=== PATIENT | male | born 2000 | race Two or more races ===

== ENCOUNTER 2023-11-28 23:08 | Emergency (ER) | payer OTHER, SELFPAY ==
--- NOTE | ~2023-11-28 | XR_ITS ---
EXAMINATION: XR ANKLE, RIGHT CLINICAL INFORMATION: Fall. Pain. COMPARISON: None available. TECHNIQUE: AP, lateral, and mortise views of the right ankle. FINDINGS: The bone mineralization is normal. The joint spaces are maintained. There is lateral soft tissue swelling extending to the lateral midfoot. There is also medial soft tissue swelling extending to the distal tib-fib soft tissues with a small amount of medial apparent subcutaneous emphysema. XR/XR ankle RT min 3V IMPRESSION: 1. Soft tissue swelling. 2. No evidence of acute fracture. 3. Small amount of medial subcutaneous emphysema which could be secondary to an open injury.
--- NOTE | ~2023-11-28 | XR_ITS ---
EXAMINATION: XR TIBIA AND FIBULA, RIGHT CLINICAL INFORMATION: Fall. Pain. COMPARISON: None available. TECHNIQUE: AP and lateral views of the right tibia and fibula were obtained. FINDINGS: The bones and soft tissues are normal. No fracture. No osseous lesions. XR/XR tibia fibula RT 2V IMPRESSION: No acute osseous abnormality.
--- NOTE | 2023-11-28 23:23 | ED_ITS ---
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 He has laceration to inner leg and swelling to lateral malleolus with abrasion complaint: ankle injury Onset (ago): minute(s) (just [employer]OR) Injury: Right: ankle Type of Injury: blunt Place: work Severity: moderate Relieving factors: immobilization Exacerbating factors: palpation Context: direct blow Associated symptoms: swelling and other (laceration) Other symptoms: none Treatments prior to arrival: bandage Related Data Previous Rx's ?Medication ?Instructions ?Recorded amoxicillin 875 mg-potassium 1 tab PO BID #14 tabs 11/29/23 clavulanate 125 mg tablet cyclobenzaprine 10 mg tablet 10 mg PO TID PRN muscle spasm #20 11/29/23 tabs ibuprofen 600 mg tablet 600 mg PO Q6H PRN pain #30 tabs 11/29/23 Allergies Allergy/AdvReac Type Severity Reaction Status Date / Time No Known Allergies Allergy Verified 11/28/23 23:27 Review of Systems 2 Review of Systems: Constitutional : No Fever, No Chills ENT/Mouth : No Ear Pain, No Hoarseness, No sore throat Eyes: No Eye Pain, No Swelling, No Redness, No Foreign Body Cardiovascular : No Chest Pain, No SOB Respiratory : No Cough, No Dyspnea Gastrointestinal : No Nausea, No Vomiting, No Diarrhea, No abdominal Pain Genitourinary : No Dysuria, No Hematuria Musculoskeletal : positive joint pain, No Myalgias, pos Joint Swelling Skin : No Skin lacerations, No rash Neuro : No Weakness, No Numbness, No Loss of Consciousness, No Dizziness, No Headache Psych : No Anxiety/Panic, No Depression Heme/Lymph: no easy bruising, no Lymphadenopathy Endocrine : No Polyuria, No Polydipsia All other systems reviewed and are negative PMFSH Past Medical History Attestation statement: The following information was validated with the patient. Source: old records reviewed Medical History (Updated 11/29/23 @ 01:48 by Jamaica Mitchell DO) No pertinent past medical history Social History Social History (Updated 11/28/23 @ 23:39 by Jamaica Mitchell DO) Patient Tobacco Use Status: Never used Tobacco Advance Directives: No Advance Directives Information Provided: No Do you have a plan to hurt others: No Plan Physical Exam 2 Vital Signs: Vital Signs: Last Vital Signs Temp 98.3 F 11/28/23 23:31 Pulse 64 11/28/23 23:31 Resp 16 11/28/23 23:31 BP 132/74 11/28/23 23:31 Pulse Ox 99 11/28/23 23:31 O2 Del Method Room Air 11/28/23 23:31 BMI result Body Mass Index 28.2 Appearance: Alert. Oriented X3. No acute distress. Eyes: Pupils equal, round and reactive to light. ENT: Pharynx normal. Neck: Normal inspection. Neck supple. CVS: Normal heart rate and rhythm. Pulses normal. Respiratory: No respiratory distress. Breath sounds normal. Abdomen: Soft and nontender. Skin: Skin warm and dry. Normal skin color. Normal skin turgor. Extremities: R ankle swollen at lateral malleolus - distal NV intact has superficial abrasion noted on left mid calf opposite the area of concern for fracture is a 1cm laceration superficial noted Neuro: Oriented X 3. No motor deficit. No sensory deficit. Medications Administered Discontinued Medications Generic Name Dose Route Start Last Admin Trade Name Freq PRN Reason Stop Dose Admin Diphtheria/Tetanus/Acell Pertussis 0.5 ml 11/28/23 23:29 11/28/23 23:45 Diphth,Pertus(Acell),Tet Adult 0.5 Ml Syringe IM 11/28/23 23:30 0.5 ml .ONCE ONE Administration Cefazolin Sodium 1 gm/ Sodium 50 mls @ 100 mls/hr 11/28/23 23:29 11/29/23 00:27 Chloride IV 11/28/23 23:58 Infused ONCE ONE Infusion Lidocaine HCl 5 ml 11/28/23 23:29 11/28/23 23:45 Lidocaine Hcl 1 % Mpf 5 Ml Vial SUBCUT 11/28/23 23:30 5 ml ONCE ONE Administration Medical Decision Making Medical Decision Making MDM Narrative: 23 yo male with R ankle and leg injury after forklift accident at work at this time concern for ankle fracture and also has laceration on upper medial leg opposite the site of concern for fracture so clinically not consistent with open fracture at this time labs, IV morphine, xray, tdap, empiric ancef pending xrays, wound repair. Differential Diagnosis Differential Diagnoses: The differential diagnosis associated with the presentation includes laceration, fracture, contusion Lab Data [facility] Lab Attestation statement: I reviewed the patient's lab results. 11/28/23 23:43 11/28/23 23:43 Labs: Lab Results 11/28/23 Range/Units 23:43 WBC 10.1 (4.8-10.8) X10*3/uL RBC 5.27 (4.60-5.80) X10*6/uL Hgb 16.8 (14.0-18.0) g/dl Hct 46.1 (42.0-52.0) % MCV 87.5 (80.0-98.0) fL MCH 31.9 (27.0-33.0) pg MCHC 36.4 H (31.0-36.0) g/dl RDW 12.5 (11.0-16.0) % Plt Count 334 (160-400) X10*3/uL MPV 9.0 L (9.4-12.4) fL Immature Gran % (Auto) 0.2 (0.0-0.4) % Neut % (Auto) 73.5 H (45-73) % Lymph % (Auto) 17.7 L (20-40) % [place] % (Auto) 6.6 (2-11) % Eos % (Auto) 1.5 (0-4) % Baso % (Auto) 0.5 (0-2) % Lymph # (Auto) 1.8 (1.2-4.9) X10*3/uL [place] # (Auto) 0.7 (0.1-1.2) X10*3/uL Eos # (Auto) 0.2 (0.0-0.4) X10*3/uL Baso # (Auto) 0.1 (0.0-0.2) X10*3/uL Abs Immat Gran (auto) 0.02 (0.00-0.03) X10*3/uL Absolute Neuts (auto) 7.4 (2.0-8.3) x10*3/uL Absolute Nucleated RBC 0.000 (0.0-0.012) X10*3/uL Nucleated RBC % (auto) 0.0 (0.0-0.2) /100WBC Sodium 142 (135-145) mmol/L Potassium 3.6 (3.3-5.1) mmol/L Chloride 106 (96-108) mmol/L Carbon Dioxide 24 (22-29) mmol/L Anion Gap 16 (12-20) BUN 13 (9-16) mg/dL Creatinine 1.00 (0.5-1.4) mg/dL Estim Creat Clear Calc 115.5 Estimated GFR > 60 Random Glucose 60 (60-115) mg/dL Calcium 9.7 (8.4-10.2) mg/dL Independent Interpretation I performed an independent interpretation of an: Plain X-Ray (no fracture) Radiology Impression Discussion of test interpretation with radiology: I have reviewed the radiologist's reading. Independent Historian Clinical information obtained from an independent historian. History obtained from or confirmed by: EMS Prescription Management I considered prescription management with: Antibiotic Procedures Laceration Laceration 1: Site: lower extremity Side (If applicable): left Size (cm): 1 Description: linear Depth: simple, single layer Local Anesthetic: lidocaine 1% Amount of anesthesia used (mL): 5 Pre-repair: wound explored, irrigated extensively and deep structures intact Skin layer closed with: nylon Size (cm): 4-0 Number of sutures: 1 Technique: simple, interrupted Discharge Plan Discharge Clinical Impression: Ankle sprain and strain, Ankle contusion, Abrasion, Laceration of leg Patient Disposition: Home, Self-Care Instructions: Ankle Sprain (ED), Laceration (ED), Contusion in Adults (ED) Additional Instructions: okay to shower in 24 hours - monitor laceration and abrasion for redness, yellow drainage, signs of infection. sutures out in 7 days crutches for 5 days can put weight on toes at day 5 if it feels okay follow up with orthopedics as needed if not better on day 5 follow up with work connection return for numbness, tingling severe pain cold blue toes Prescriptions: New cyclobenzaprine 10 mg tablet 10 mg PO TID PRN (Reason: muscle spasm) Qty: 20 0RF ibuprofen 600 mg tablet 600 mg PO Q6H PRN (Reason: pain) Qty: 30 0RF amoxicillin-pot clavulanate 875-125 mg tablet 1 tab PO BID Qty: 14 0RF Referrals: Jaylyn Tabor PA [Physician Enrobing Machine Feeder] - (any provider at work connection call to schedule) Marielena Garcia PA-C [Physician Enrobing Machine Feeder] - (any provider at orthopedics if pain still present) Stand Alone Forms: Work/School Release Print Language: Yoruba
[2023-11-28 23:26] VITALS: BP 112/56; PULSE 68; O2SAT 99; BMI 28.2
[2023-11-28 23:31] VITALS: BP 132/74; PULSE 64; RESP 16; TEMP 36.8; O2SAT 99
[2023-11-28] MEDS: Diphth,Pertus(ACell),Tet Adult 0.5 ML SYRINGE IM (23:45)
[2023-11-28] MEDS: Lidocaine HCl 1 % MPF 5 ML VIAL SUBCUT (23:45)
[2023-11-28 23:48] LABS: Basophils Absolute Auto 0.1 X10*3/uL (0.0-0.2); Basophils Percent Auto 0.5 % (0-2); Eosinophils Absolute Auto 0.2 X10*3/uL (0.0-0.4); Eosinophils Percent Auto 1.5 % (0-4); Hematocrit 46.1 % (42.0-52.0); Hemoglobin 16.8 g/dl (14.0-18.0); Imm Gran Abs Auto 0.02 X10*3/uL (0.00-0.03); Imm Gran Pct Auto 0.2 % (0.0-0.4); Lymphocytes Absolute Auto 1.8 X10*3/uL (1.2-4.9); Lymphocytes Percent Auto 17.7 % (20-40); MANUAL DIFF FLAG NO; Mean Corpuscular HGB Conc 36.4 g/dl (31.0-36.0); Mean Corpuscular Hemoglobin 31.9 pg (27.0-33.0); Mean Corpuscular Volume 87.5 fL (80.0-98.0); Monocytes Absolute Auto 0.7 X10*3/uL (0.1-1.2); Monocytes Percent Auto 6.6 % (2-11); Neutrophils Absolute Auto 7.4 x10*3/uL (2.0-8.3); Neutrophils Percent Auto 73.5 % (45-73); Platelet Count 334 X10*3/uL (160-400); Red Blood Count 5.27 X10*6/uL (4.60-5.80); Red Cell Distribution Width 12.5 % (11.0-16.0); White Blood Count 10.1 X10*3/uL (4.8-10.8)
[2023-11-29 00:03] LABS: Anion Gap 16 (12-20); Blood Urea Nitrogen 13 mg/dL (9-16); Calcium 9.7 mg/dL (8.4-10.2); Carbon Dioxide 24 mmol/L (22-29); Chloride 106 mmol/L (96-108); Creatinine Clr Calc Pharmacy 115.5; Estimated Glomerular Filt Rate > 60; Glucose Random 60 mg/dL (60-115); Potassium 3.6 mmol/L (3.3-5.1); Sodium 142 mmol/L (135-145)
--- NOTE | 2023-11-29 00:30 | PC.NURSE ---
20gIV placed in the left AC - labs obtained/sent to lab. medication administered per provider order. lidocaine placed bedside for provider use. pt waiting to go to xray at this time. family bedside for support.
--- NOTE | 2023-11-29 01:43 | PC.NURSE ---
sutures placed by dr. bermeo at this time.
--- NOTE | 2023-11-29 01:56 | PC.NURSE ---
bandage applied to RLE. pt educated on proper use of crutches.
[2023-11-29 02:06] VITALS: BP 132/74; PULSE 64; RESP 16; TEMP 36.8; O2SAT 99
== END 2023-11-29 02:07 | disposition home or self-care (01) ==
PROVIDERS: Emergency Provider Emergency Medicine
DX: S93.401A Sprain of unspecified ligament of right ankle, initial encounter (principal); S96.911A Strain of unspecified muscle and tendon at ankle and foot level, right foot, initial encounter; S90.01XA Contusion of right ankle, initial encounter; S81.811A Laceration without foreign body, right lower leg, initial encounter; W23.1XXA Caught, crushed, jammed, or pinched between stationary objects, initial encounter; Y93.89 Activity, other specified; Y92.59 Other trade areas as the place of occurrence of the external cause; Y99.0 Civilian activity done for income or pay
CPT/HCPCS: 12001; 36415; 73590; 73610; 80048; 85025; 90471; 90715; 96365; 99283; 99284; J0690

== ENCOUNTER → 2023-12-05 12:05 | Outpatient (BNVA) | payer OTHER, SELFPAY | PROVIDERS: Visit Provider Registered Nurse | DX: S97.01XA Crushing injury of right ankle, initial encounter (principal); W24.0XXA Contact with lifting devices, not elsewhere classified, initial encounter | CPT/HCPCS: 99203 ==

== ENCOUNTER → 2023-12-25 09:43 | Outpatient (BNVA) | payer OTHER, SELFPAY | PROVIDERS: Visit Provider Registered Nurse | DX: S97.81XA Crushing injury of right foot, initial encounter (principal); S97.01XA Crushing injury of right ankle, initial encounter; S93.401A Sprain of unspecified ligament of right ankle, initial encounter; S84.11XA Injury of peroneal nerve at lower leg level, right leg, initial encounter; W24.0XXA Contact with lifting devices, not elsewhere classified, initial encounter; Y93.89 Activity, other specified; Y92.69 Other specified industrial and construction area as the place of occurrence of the external cause; Y99.0 Civilian activity done for income or pay | CPT/HCPCS: 99202 ==

== ENCOUNTER 2023-12-25 10:07 | Outpatient (AMB) | payer OTHER, SELFPAY ==
--- NOTE | 2023-12-25 10:18 | A.OFFVIS_ITS ---
Intake Visit Reasons: N/P Rt Ankle Crush Injury W/C referral 11/28/23 Intake Note: Andrew is a 23 year old male who presents to the office today for a new patient visit for right ankle crush injury. Pt states on 11/28/23 he was on a pallet alicia and his leg got crushed between the pallet alicia and the railing after he was flown off of the alicia. He states he can walk better now but states he is still having issues with swelling and calf pain. Allergies No Known Allergies Allergy (Verified 12/25/23 10:18) Medication List - Last Reconciled 12/25/23 by Elpidio Lorenzo PA-C ibuprofen 600 mg PO Q6H PRN ibuprofen 800 mg PO Q8H PRN HPI HPI N/P Rt Ankle Crush Injury W/C referral 11/28/23: Details: 23-year-old male who presents to the office today for an evaluation of right ankle injury after his leg got crushed between the pallet alicia and the railing after he was flown off the alicia, 11/28/23. He currently states he has improvement in her pain and is able to ambulate better however he still has limited ROM, swelling as well as calf pain. He has tried ibuprofen however discontinued taking them. He goes to work on a wheelchair and ambulates with a cane at home. [facility] Medical History No pertinent past medical history Social History Patient Tobacco Use Status: Never used Tobacco Review of Systems Const All systems reviewed & are unremarkable except as noted in HPI and below Physical Exam Const General: cooperative, healthy appearing, comfortable, no acute distress, well developed and alert Orientation/consciousness: patient oriented x3 HEENT Head: Yes normal to inspection, Yes normocephalic and Yes atraumatic Eyes General: appearance normal, both eyes and all related structures Resp Effort & Inspection: normal respiratory effort and able to speak in complete sentences Cardio Rate: regular rate Peripheral pulses: Peripheral pulses 2+ throughout GI Palpation (GI): Soft to palpation Skin Lesions: no lesions Rashes: no rashes Neuro General: patient oriented x3 Extrem Other: Right ankle/ foot: Normal to inspection with diffuse swelling over the medial and lateral malleolus with tenderness along the soft tissues. Mild discomfort along the posterior aspect of the ankle, no deformity along the Achilles tendon, negative Delcid?s. No pain along the syndesmosis or anterior tibia. No laxity, NVI. Results Reviewed Results Reviewed: xrays of the right ankle and foot are negative for acute fracture or dislocations. Assessment & Plan Assessment & Plan (1) Crush injury of right foot: Code(s): S97.81XA - Crushing injury of right foot, initial encounter Category: Medical (2) Crushing injury of right ankle: Code(s): S97.01XA - Crushing injury of right ankle, initial encounter Category: Medical (3) Right ankle sprain: Code(s): S93.401A - Sprain of unspecified ligament of right ankle, initial encounter Category: Medical (4) Right peroneal nerve injury: Code(s): S84.11XA - Injury of peroneal nerve at lower leg level, right leg, initial encounter Category: Medical Plan He was given a tall boot weight bearing as tolerated. He will wear this at all times while ambulating. He was also given a physical therapy order to work on ROM, desensitization, edema control, and strengthening exercises. I did order an EMG/nerve conduction study of the RLE to further evaluate the etiology of his numbness. He has returned to work after his injury and has been working with restrictions. He will return to work on December 25. He must elevate his RLE 3-4 times during the day at interval of 20 minutes and perform no prolonged standing. He will avoid any type of lifting, pushing, pulling, or carrying or climbing activities. I would like to see him back in 6-8 weeks, sooner if needed. Orders: Orders PT Evaluation and Treatment Today S84.11XA - Injury of peroneal nerve at lower leg level, right leg, initial encounter, S93.401A - Sprain of unspecified ligament of right ankle, initial encounter, S97.01XA - Crushing injury of right ankle, initial encounter, S97.81XA - Crushing injury of right foot, initial encounter NE electromyogram (EMG) Today R20.0 - Anesthesia of skin, R20.2 - Paresthesia of skin NE nerve conduction velocity Today R20.0 - Anesthesia of skin, R20.2 - Paresthesia of skin Patient Instructions: Scribed for Elpidio Lorenzo PA-C, by [facility] medical assistant, on 12/25/2023 at 10:45 AM EST.? I, Elpidio Lorenzo PA-C, have personally reviewed and agree with the information entered by the scribe. Coding Level of Care Code New Pt Level 3 (32964) Diagnoses Crush injury of right foot S97.81XA Crushing injury of right ankle S97.01XA Right ankle sprain S93.401A Right peroneal nerve injury S84.11XA
== END 2023-12-25 11:38 | disposition home or self-care (01) ==
PROVIDERS: Visit Provider Physician Assistant
DX: S97.81XA Crushing injury of right foot, initial encounter (principal); S93.401A Sprain of unspecified ligament of right ankle, initial encounter; S84.11XA Injury of peroneal nerve at lower leg level, right leg, initial encounter; Z04.2 Encounter for examination and observation following work accident
CPT/HCPCS: 99203